=== PATIENT | male | born 1975 | race Caucasian/White ===

== ENCOUNTER → 2016-11-10 | Outpatient (CLI) | payer BC ==
--- NOTE | 2016-11-10 12:41 | RAD ---
HISTORY: Cough, chest pain, shortness of breath Study: Chest two-view Comparison: None Findings: The heart is upper limits normal in size. No congestive heart failure is noted. The right apex and l eft lung are clear. There is a large right pleural effusion obscuring the lung markings in the right middle and right lower lobes. The bony thorax is unremarkable. IMPRESSION: Large right pleural effusion obscuring the lung markings in the right middle and right lower lobes Reported By:
== END | disposition home or self-care (01) | DRG 204 ==
LOC: RAD 11:44
PROVIDERS: ATTEND Nurse Practitioner Family
DX: R06.02 Shortness of breath (principal); R07.1 Chest pain on breathing; R07.89 Other chest pain; J90 Pleural effusion, not elsewhere classified
CPT/HCPCS: 71020

== ENCOUNTER → 2016-11-18 | Outpatient (CLI) | payer BC ==
--- NOTE | 2016-11-18 11:24 | RAD ---
HISTORY: Shortness of breath, chest pain. Study: PA and lateral chest. Comparison: Chest x-ray dated November 10, 2016. Findings: The trachea is midline. The cardiac silhouette is unchanged. Large right pleural effusion that hemphill s not appear significantly changed from a prior comparison. The aeration of the visualized right upp er lung appears unchanged. The left lung is clear. No obvious pneumothorax. The bony thorax is unre markable. IMPRESSION: No significant change in large right pleural effusion. Consider dedicated CT of the ches t with contrast to exclude underlying neoplasm. Reported By:
== END ==
LOC: RAD 11:01
PROVIDERS: ATTEND Nurse Practitioner Family
DX: R06.02 Shortness of breath (principal); R07.1 Chest pain on breathing; J90 Pleural effusion, not elsewhere classified
CPT/HCPCS: 71020

== ENCOUNTER → 2016-11-20 | Outpatient (CLI) | payer BC ==
[~2016-11-20] MED LIST: NS 100 ML IV 100 ML IV ONE
--- NOTE | 2016-11-20 10:51 | CT ---
Chest CT with contrast Indication: Pleural effusion Technique: Helical CT images of the chest were obtained with intravenous contrast. Reformatted image s in the coronal and sagittal planes were also generated for review. Comparison: Chest radiograph November 18, 2016 Findings: There is a large, partially loculated right pleural effusion with marked resultant compressive atele ctasis of the right lung, most significant within the right lower lobe. The effusion demonstrates pr edominantly simple fluid attenuation, however there is suggestion of thin, uniform right pleural thi ckening and enhancement. Irregular soft tissue density pleural thickening within the right lung apex is also seen, which demonstrates an average 32 HU. The aerated portions of the right lung demonstrate no discrete mass or nodule. The left lung is also essentially clear. There are multiple prominent right paratracheal, right hilar and lower mediastinal lymph nodes. For future reference, a sub-carinal node measures approximately 1 cm in short axis on axial image 33, se [id number] 6. No left hilar or axillary lymphadenopathy is seen. The heart size is normal without pericard ial effusion. The thoracic aorta and great vessels are unremarkable. The central airways are patent. Limited images of the upper abdomen demonstrate diffuse hepatic steatosis. There are also indetermin ate bilateral adrenal nodules, which measure 2.4 cm on the left and 1.2 cm on the right. No focal ag gressive osseous lesions are identified. Impression: 1. Large, partially loculated, simple fluid attenuation right pleural effusion with significant comp ressive atelectasis of the right lung. The effusion may be infectious in etiology. However, there is suggestion of irregular, soft tissue density pleural thickening within the right lung apex, which c ould reflect additional loculated fluid, although an underlying pleural-based lesion, such is [address] st/superior sulcus tumor is difficult to exclude. Thoracentesis with pleural fluid analysis for furt her evaluation is advised. 2. Mildly prominent right hilar and mediastinal lymph nodes are nonspecific and possibly reactive or reflect metastatic disease. Again, correlation with pleural fluid analysis is recommended. 3. Indeterminate bilateral adrenal gland nodules. Again, correlation with pleural fluid analysis and /or further characterization with dedicated CT adrenal protocol is advised. 4. Hepatic steatosis. Reported By:
== END | disposition home or self-care (01) | DRG 187 ==
LOC: RAD 09:23
PROVIDERS: ATTEND Nurse Practitioner Family
DX: J90 Pleural effusion, not elsewhere classified (principal); J98.11 Atelectasis
CPT/HCPCS: 71260; A4222

== ENCOUNTER → 2016-11-28 | Outpatient (CLI) | payer BC ==
--- NOTE | 2016-11-28 10:36 | RAD ---
HISTORY: Pleural effusion Study: Two views of the chest Comparison: November 18, 2016 Findings: The trachea is midline. The cardiac silhouette is unremarkable. Images again demonstrate a moderat e to large right-sided pleural effusion which has decreased in size since prior exam slight elevatio n of the right hemidiaphragm is again noted. IMPRESSION: 1. Persistent right-sided pleural effusion which has slightly decreased in size. Reported By:
== END ==
LOC: RAD 09:35
PROVIDERS: ATTEND Nurse Practitioner Family
DX: J90 Pleural effusion, not elsewhere classified (principal)
CPT/HCPCS: 71020